=== PATIENT | male | born 1955 | race Hispanic/Latino ===

== ENCOUNTER → 2021-04-07 | Outpatient (CLI) | payer MEDICARE ==
[~2021-04-07] MED LIST: IOHEXOL-350 75 ML VIAL IV ONE
== END | disposition home or self-care (01) ==
LOC: RAH 09:52
PROVIDERS: ATTEND Internal Medicine Critical Care Medicine
DX: G31.89 Other specified degenerative diseases of nervous system (principal); R51.9 Headache, unspecified; I70.8 Atherosclerosis of other arteries
CPT/HCPCS: 70450; 70496; Q9967